=== PATIENT | female | born 1990 | race Caucasian/White ===

== ENCOUNTER 2018-01-07 11:33 | Outpatient (CLI) | payer OTHER | END 2018-01-07 14:22 | disposition home or self-care (01) | LOC: OBT 11:33 → L-D 11:33 → OBT 14:22 | DX: O36.8130 Decreased fetal movements, third trimester, not applicable or unspecified (principal); Z3A.32 32 weeks gestation of pregnancy | CPT/HCPCS: 76818 ==

== ENCOUNTER 2018-01-10 14:54 | Outpatient (CLI) | payer OTHER | END 2018-01-10 15:40 | disposition home or self-care (01) | LOC: OBT 14:54 → L-D 14:54 → OBT 15:40 | DX: O26.893 Other specified pregnancy related conditions, third trimester (principal); R10.9 Unspecified abdominal pain; Z3A.32 32 weeks gestation of pregnancy | CPT/HCPCS: 76818 ==

== ENCOUNTER 2018-02-07 16:57 | Inpatient (IN) | payer OTHER ==
[2018-02-07] MEDS ORDERED: CARBOPROST 250 MCG INJ IM (18:00)
[2018-02-07] MEDS ORDERED: LIDOCAINE 1% (MPF) 30 ML INJ INJ (18:00)
[2018-02-07] MEDS ORDERED: OXYTOCIN 30 UNITS/LR 500 ML IV (18:00)
[2018-02-07] MEDS: LACTATED RINGER'S 1,000 ML IV* (18:34)
[2018-02-07] MEDS: AMPICILLIN 2 GM/NS (PMX) 100 ML IV (18:41)
[2018-02-07 18:45] LABS: ADD MAN DIFF? NO
[2018-02-07 18:52] LABS: WHITE BLOOD COUNT 16.2 10^3/ul (4.8-10.8)
[2018-02-07 18:52] LABS: BASOPHIL # 0.1 10^3/ul (0.0-0.1); BASOPHILS % 0.4 % (0.0-2.0); EOSINOPHILS # 0.1 10^3/ul (0.0-0.5); EOSINOPHILS % 0.7 % (0.0-7.0); HEMATOCRIT 38.6 % (37.0-47.0); HEMOGLOBIN 12.7 g/dl (12.0-16.0); LYMPHOCYTES # 1.7 10^3/ul (0.8-2.9); LYMPHOCYTES % 10.6 % (15.0-51.0); MEAN CORPUSCULAR HEMOGLOBIN 28.7 pg (29.0-33.0); MEAN CORPUSCULAR HGB CONC 32.9 g/dl (32.0-37.0); MEAN CORPUSCULAR VOLUME 87.3 fl (82.0-101.0); MEAN PLATELET VOLUME 10.4 fl (7.4-10.4); NEUTROPHIL # 12.9 10^3/ul (1.6-7.5); PLATELET COUNT 351 10^3/UL (140-415); RED BLOOD COUNT 4.42 10^6/ul (4.20-5.40); RED CELL DISTRIBUTION WIDTH 13.8 % (11.5-14.5)
[2018-02-07 19:08] LABS: INR 0.87; PROTIME 11.9 Sec (11.9-14.9); PT RATIO 0.9
[2018-02-07 19:11] LABS: PARTIAL THROMBOPLASTIN TIME 24.7 Sec (23.0-35.0)
[2018-02-08] MEDS: AMPICILLIN 1 GM/NS (PMX) 50 ML IV ×7 (00:09→23:47)
[2018-02-08] MEDS: LACTATED RINGER'S 1,000 ML IV* ×3 (02:32→21:07)
[2018-02-08 15:53] LABS: RAPID PLASMA REAGIN NONREACTIVE (NR)
[2018-02-09] MEDS: AMPICILLIN 1 GM/NS (PMX) 50 ML IV ×5 (03:52→17:42)
[2018-02-09] MEDS: LACTATED RINGER'S 1,000 ML IV* ×4 (06:12→21:41)
[2018-02-09] MEDS ORDERED: ONDANSETRON 4 MG INJ IV ×2 (13:00→21:00)
[2018-02-09] MEDS ORDERED: DIPHENHYDRAMINE 50 MG INJ IV ×2 (13:00→21:00)
[2018-02-09] MEDS ORDERED: NALOXONE (0.4 MG/ML) INJ IV (13:00)
[2018-02-09] MEDS: FENTAnyl 2MCG/ML-ROPIV 0.2% 100 ML BAG EPI (13:51)
[2018-02-09] MEDS: OXYTOCIN 30 UNITS/LR 500 ML IV ×3 (14:25→18:46)
[2018-02-09] MEDS: MISOPROSTOL 200 MCG TAB PR ×2 (18:16→18:21)
[2018-02-09] MEDS: METHYLERGONOVINE 0.2 MG INJ IM (18:20)
[2018-02-09] MEDS ORDERED: CEFAZOLIN 2 GM/50 ML (PMX) 50 ML IVPB ×2 (18:27→22:00)
[2018-02-09] MEDS: MISOPROSTOL 200 MCG TAB SL (18:47)
[2018-02-09] MEDS: CEFAZOLIN 2 GM/50 ML (PMX) 50 ML IVPB (18:50)
[2018-02-09] MEDS: DEXTROSE 5%-LR 1,000 ML IV (20:41)
[2018-02-09] MEDS ORDERED: ACETAMINOPHEN 325 MG TAB PO (21:00)
[2018-02-09] MEDS ORDERED: MISOPROSTOL 200 MCG TAB PR (21:00)
[2018-02-09] MEDS ORDERED: METHYLERGONOVINE 0.2 MG INJ IM (21:00)
[2018-02-09] MEDS ORDERED: SENNA/DOCUSATE NA (8.6MG/50MG) TAB PO (21:00)
[2018-02-09] MEDS ORDERED: LANOLIN 7 GM TUBE TOP (21:00)
[2018-02-09] MEDS ORDERED: CARBOPROST 250 MCG INJ IM (21:00)
[2018-02-09] MEDS ORDERED: DIBUCAINE 1% 30 GM OINT PR (21:00)
[2018-02-09] MEDS ORDERED: ZOLPIDEM 5 MG TAB PO (21:00)
[2018-02-09] MEDS ORDERED: OXYTOCIN 30 UNITS/LR 500 ML IV (21:00)
[2018-02-09] MEDS: OXYCODONE/ASPIRIN (4.88/325) TAB PO (21:44)
[2018-02-09] MEDS: WITCH HAZEL/GLYCERIN PAD PR (23:46)
[2018-02-09] MEDS: BENZOCAINE 20% 56 ML SPRAY TOP (23:46)
[2018-02-09] MEDS: IBUPROFEN 600 MG TAB PO (23:46)
[2018-02-10] MEDS ORDERED: CEFAZOLIN 2 GM/50 ML (PMX) 50 ML IVPB
[2018-02-10] MEDS: CEFAZOLIN 2 GM/50 ML (PMX) 50 ML IVPB (01:29)
[2018-02-10] MEDS: OXYCODONE/ASPIRIN (4.88/325) TAB PO ×2 (04:31→19:55)
[2018-02-10] MEDS: LACTATED RINGER'S 1,000 ML IV* (04:41)
[2018-02-10] MEDS: DEXTROSE 5%-LR 1,000 ML IV (04:41)
[2018-02-10] MEDS: IBUPROFEN 600 MG TAB PO ×4 (05:54→23:36)
[2018-02-10 07:42] LABS: ADD MAN DIFF? NO
[2018-02-10 07:46] LABS: ABNORMAL IP MESSAGE 1; BASOPHIL # 0.1 10^3/ul (0.0-0.1); BASOPHILS % 0.3 % (0.0-2.0); EOSINOPHILS # 0.2 10^3/ul (0.0-0.5); EOSINOPHILS % 1.2 % (0.0-7.0); HEMATOCRIT 32.3 % (37.0-47.0); HEMOGLOBIN 10.6 g/dl (12.0-16.0); LYMPHOCYTES % 17.4 % (15.0-51.0); MEAN CORPUSCULAR HEMOGLOBIN 29.2 pg (29.0-33.0); MEAN CORPUSCULAR HGB CONC 32.8 g/dl (32.0-37.0); MEAN PLATELET VOLUME 10.4 fl (7.4-10.4); MONOCYTE # 1.5 10^3/ul (0.3-0.9); MONOCYTES % 9.1 % (0.0-11.0); NEUTROPHIL # 12.1 10^3/ul (1.6-7.5); NEUTROPHILS % 71.1 % (39.0-77.0); PLATELET COUNT 286 10^3/UL (140-415); RED BLOOD COUNT 3.63 10^6/ul (4.20-5.40)
[2018-02-10 07:50] LABS: POSITIVE DIFF @See below
[2018-02-11] MEDS: OXYCODONE/ASPIRIN (4.88/325) TAB PO (02:38)
[2018-02-11] MEDS: IBUPROFEN 600 MG TAB PO ×2 (05:35→11:48)
[2018-02-11] MEDS: MEASLES,MUMPS,RUBELLA VACCINE INJ SC* (09:00)
[2018-02-11] MEDS: DIPHTH/TET/ACEL PERTUSS (ADULT) 0.5 ML VIAL IM* (11:49)
== END 2018-02-11 15:37 | disposition home or self-care (01) | DRG 806 ==
LOC: OBT 16:57 → PP1 02-09 21:18 → L-D 16:59 → OBT 17:45 → L-D 17:45
PROVIDERS: Obstetrics & Gynecology
PROC: 10E0XZZ Delivery of Products of Conception, External Approach (ICD-10-PCS; principal; 2018-02-09)
DX: O99.214 Obesity complicating childbirth (principal); Z68.41 Body mass index [BMI] 40.0-44.9, adult; Z37.0 Single live birth; E66.9 Obesity, unspecified; Z71.3 Dietary counseling and surveillance; Z3A.37 37 weeks gestation of pregnancy
CPT/HCPCS: 62319; 85025; 85610; 85730; 86592; 86850; 86900; 86901; 90686; 90715